=== PATIENT | female | born 2000 | race Caucasian/White ===

== ENCOUNTER 2022-05-05 10:39 | Day surgery (SDC) | payer OTHER ==
[2022-05-01 14:23] VITALS: BMI 25.0
[2022-05-05] MEDS ORDERED: CeleCOXIB 100 MG CAP ONE (11:44)
[2022-05-05] MEDS ORDERED: Tranexamic Acid 1,000 MG/10 ML VIAL ONE (11:50)
[2022-05-05] MEDS ORDERED: Misoprostol 200 MCG TAB ONE (11:50)
[2022-05-05] MEDS ORDERED: Silver Nitrate Application 1 EACH ONE (11:51)
[2022-05-05] MEDS ORDERED: Methylergonovine 0.2 MG/ML VIAL ONE (11:51)
[2022-05-05] MEDS ORDERED: Lidocaine 1% MPF 2 ML VIAL ONE (12:13)
[2022-05-05] MEDS ORDERED: Ondansetron PF 4 MG/2 ML Vial ONE (12:45)
[2022-05-05] MEDS ORDERED: Ketorolac Tromethamine 30 MG/ML VIAL ONE (12:45)
[2022-05-05] MEDS ORDERED: Midazolam HCl 2 mg/2 ml Vial ONE (12:45)
[2022-05-05] MEDS ORDERED: PROPOFOL 20 ML ONE (12:45)
[2022-05-05] MEDS ORDERED: Dexamethasone 20 MG/5 ML VIAL ONE (12:45)
[2022-05-05] MEDS ORDERED: Fentanyl 100 MCG/2 ML VIAL ONE (12:45)
[2022-05-05] MEDS ORDERED: Lidocaine 1% PF 5 ML VIAL ONE (12:45)
[2022-05-05] MEDS ORDERED: CEFAZOLIN 2 GM VIAL ONE (12:51)
== END 2022-05-05 15:45 | disposition home or self-care (01) ==
LOC: CSHSDC 10:39
PROVIDERS: ATTEND Student in an Organized Health Care Education/Training Program
PROC: 10D17ZZ Extraction of Products of Conception, Retained, Via Natural or Artificial Opening (ICD-10-PCS; principal; 2022-05-05)
DX: O02.89 Other abnormal products of conception (principal); N96 Recurrent pregnancy loss; Z79.899 Other long term (current) drug therapy; Z20.822 Contact with and (suspected) exposure to COVID-19
CPT/HCPCS: 36415; 86850; 86900; 86901; 88305; J0690; J1100; J1885; J2210; J2250; J2405; J2704; J3010